=== PATIENT | male | born 1950 | race Caucasian/White ===

== ENCOUNTER 2020-04-27 09:52 | Emergency (ER) | payer MEDICARE, BC ==
--- NOTE | 2020-04-27 10:37 | EDM.PDOC ---
ED HPI GENERAL MEDICAL PROBLEM - General Chief Complaint: Flank Pain Stated Complaint: FELL ON STAIRS LAST NIGHT Time Seen by Provider: 04/27/20 10:30 Source of Information: Reports: Patient, RN History Limitations: Reports: Other (limited old records) - History of Present Illness INITIAL COMMENTS - FREE TEXT/NARRATIVE: 69 yo male fell on some stairs 2 days ago injuring the L sided of his chest. Has pain with movement or coughing since then. No SOB or hematuria. Insufficient relief with ibuprofen. 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 - Related Data Allergies Allergy/AdvReac Type Severity Reaction Status Date / Time No Known Allergies Allergy Verified 04/27/20 10:12 Home Meds: Home Meds LORazepam [Lorazepam] 1 mg PO TID PRN 04/27/20 [History] Metoprolol Succinate [Toprol XL] 1 tab PO DAILY 04/27/20 [History] Multivitamin [Multi-Vitamin Daily] 1 oz PO DAILY 04/27/20 [History] Omeprazole 1 cap PO DAILY 04/27/20 [History] Past Medical History HEENT History: Reports: Hard of Hearing Musculoskeletal History: Reports: Fracture Other Musculoskeletal History: left arm Neurological History: Reports: Concussion, Head Trauma Psychiatric History: Reports: PTSD - Infectious Disease History Infectious Disease History: Reports: Chicken Pox, Measles - Past Surgical History Musculoskeletal Surgical History: Reports: Knee Replacement Other Musculoskeletal Surgeries/Procedures:: left replaced and right foot surgery Social & Family History - Tobacco Use Smoking Status *Q: Current Every Day Smoker Years of Tobacco use: 50 Packs/Tins Daily: 0.5 Used Tobacco, but Quit: No - Caffeine Use Caffeine Use: Reports: Coffee, Energy Drinks, Soda - Recreational Drug Use Recreational Drug Use: No ED ROS GENERAL - Review of Systems Review Of Systems: See Below Constitutional: Reports: No Symptoms Respiratory: Reports: Pleuritic Chest Pain (left lateral chest) Cardiovascular: Reports: No Symptoms GI/Abdominal: Reports: No Symptoms : Reports: No Symptoms Skin: Reports: No Symptoms Neurological: Reports: No Symptoms ED EXAM, GENERAL - Physical Exam Exam: See Below Exam Limited By: No Limitations General Appearance: Alert, WD/WN, No Apparent Distress Eye Exam: Bilateral Eye: Normal Inspection Ears: Normal External Exam, Normal Canal, Hearing Grossly Normal Nose: Normal Inspection, No Blood Throat/Mouth: Normal Inspection, Normal Voice, No Airway Compromise Head: Atraumatic, Normocephalic Neck: Normal Inspection Respiratory/Chest: No Respiratory Distress, Lungs Clear, Normal Breath Sounds, No Accessory Muscle Use, Other (chest wall tender without crepitus on left. ). No: Chest Non-Tender Extremities: Normal Inspection, Normal Range of Motion, Non-Tender, No Pedal Edema Neurological: Alert, Oriented, CN II-XII Intact, Normal Cognition, No Motor/ Sensory Deficits Psychiatric: Normal Affect, Normal Mood Skin Exam: Warm, Dry, Intact, Normal Color, No Rash. No: Ecchymosis Course - Vital Signs Last Recorded V/S: Last Vital Signs Temp 35.3 C L 04/27/20 10:29 Pulse 111 H 04/27/20 10:29 Resp 16 04/27/20 10:29 BP 142/96 H 04/27/20 10:29 Pulse Ox 98 04/27/20 10:29 - Orders/Labs/Meds Meds: Medications Discontinued Medications Generic Name Dose Route Start Last Admin Trade Name Kali PRN Reason Stop Dose Admin Hydrocodone Bitart/Acetaminophen 1 tab 04/27/20 11:05 04/27/20 11:11 [place] 325-5 Mg PO 04/27/20 11:06 1 tab ONETIME ONE Administration - Radiology Interpretation Free Text/Narrative:: left Ribs and CXR - Impression: Subtle nondisplaced fracture of the anterolateral 5th rib without evidence of pneumothorax. Dictated by Shanda Cevallos MD @ Apr 27 2020 11:44AM Departure - Departure Time of Disposition: 11:48 Disposition: Home, Self-Care 01 Condition: Good Clinical Impression: Left rib fracture Qualifiers: Encounter type: initial encounter Rib fracture type: single rib Fracture type: closed Qualified Code(s): S22.32XA - Fracture of one rib, left side, initial encounter for closed fracture - Discharge Information *PRESCRIPTION DRUG MONITORING PROGRAM REVIEWED*: No *COPY OF PRESCRIPTION DRUG MONITORING REPORT IN PATIENT DORITA: No Referrals: PCP,None [Primary Care Provider] - Forms: ED Department Discharge Additional Instructions: Take ibuprofen 400 mg every 6 hrs with food for pain relief. Add acetaminophen up to 1000 mg every 6 hrs for added relief. If needed substitute [place] for acetaminophen. Recheck with your provider as needed. Sepsis Event Note - Evaluation Sepsis Screening Result: No Definite Risk - Focused Exam Vital Signs: Vital Signs Temp Pulse Resp BP Pulse Ox 04/27/20 10:29 35.3 C L 111 H 16 142/96 H 98 04/27/20 10:28 35.3 C L 111 H 16 142/96 H 98 Date Exam was Performed: 04/27/20 Time Exam was Performed: 11:47
[2020-04-27] MEDS ORDERED: Acetaminophen/HYDROcodone 325-5 MG Tab PO ONE (11:05)
--- NOTE | 2020-04-27 11:46 | CRLCR ---
Indication: Fall. Pain in upper left ribs. Technique: AP portable view of the chest. Two views the left ribs. Comparison: None Findings: Scoliosis of the spine is identified. The heart is normal in size. The lungs are clear. No infiltrate, pleural effusion, pneumothorax is identified. A subtle nondisplaced fracture of the right anterior lateral 5th rib is identified. No other fractures are identified. Impression: Subtle nondisplaced fracture of the anterolateral 5th rib without evidence of pneumothorax. Dictated by Shanda Cevallos MD @ Apr 27 2020 11:44AM Signed by Dr. Shanda Cevallos @ Apr 27 2020 11:45AM
== END 2020-04-27 11:57 | disposition home or self-care (01) ==
LOC: JP.ED 09:52
DX: S22.32XA Fracture of one rib, left side, initial encounter for closed fracture (principal); Z79.899 Other long term (current) drug therapy; F17.210 Nicotine dependence, cigarettes, uncomplicated; W10.8XXA Fall (on) (from) other stairs and steps, initial encounter
CPT/HCPCS: 71101; A9270